=== PATIENT | female | born 1975 | race Caucasian/White ===

== ENCOUNTER 2022-08-07 22:08 | Emergency (ER) | payer SELFPAY ==
[~2022-08-07] VITALS: Ht 157.5 cm; Wt 72.9 kg
[2022-08-07 23:04] VITALS: O2SAT 98
[2022-08-08 04:36] LABS: BASOPHILS % 0.3 % (0.0-2.0); EOSINOPHILS % 0.8 % (0.0-5.0); HEMATOCRIT. 37.3 % (36.0-48.0); HEMOGLOBIN. 12.4 g/dL (12.0-16.0); LYMPHOCYTES % 18.6 % (20.0-50.0); MEAN CORPUSCULAR VOLUME 90.1 fL (81.0-99.0); MEAN PLATELET VOLUME 9.3 fl (7.4-10.4); MONOCYTES % 9.2 % (2.0-8.0); NEUTROPHILS % 71.1 % (40.0-76.0); PLATELET 266 x1000/uL (130-400); RED BLOOD CELL COUNT 4.14 mill/uL (4.2-5.4)
[2022-08-08 04:47] LABS: CLARITY URINE CLEAR (CLEAR); COLOR URINE YELLOW (YELLOW); KETONES URINE NEGATIVE (NEGATIVE); LEUKOCYTE ESTERASE URINE 1+ (NEGATIVE); NITRITE URINE NEGATIVE (NEGATIVE); OCCULT BLOOD URINE 1+ (NEGATIVE); PH URINE 6.5 (4.5-8.0); PROTEIN URINE NEGATIVE (NEGATIVE); SPECIFIC GRAVITY URINE 1.004 (1.005-1.030); UROBILINOGEN URINE 0.2 E.U./dL (0.2-1.0)
[2022-08-08 06:00] VITALS: BP 116/58; PULSE 76; RESP 15; TEMP 98.7
[2022-08-08] MEDS ORDERED: CEPH500C2 MT (06:06)
[2022-08-08] MEDS ORDERED: IBUP-2028 MT (06:06)
== END 2022-08-08 06:18 | disposition home or self-care (01) ==
LOC: ER 22:08
DX: M54.50 Low back pain, unspecified (principal); N12 Tubulo-interstitial nephritis, not specified as acute or chronic; D64.9 Anemia, unspecified
CPT/HCPCS: 36415; 72100; 81003; 85025; 99284

== ENCOUNTER 2025-02-03 12:08 | Emergency (ER) | payer MEDICAID ==
[~2025-02-03] VITALS: Ht 162.6 cm; Wt 73.0 kg
[~2025-02-03 12:08] MED LIST: CEPH500C2 MT; IBUP-2028 MT
[2025-02-03 12:14] VITALS: O2SAT 99
[2025-02-03 12:49] LABS: BASOPHILS % 0.7 % (0.0-2.0); EOSINOPHILS % 1.4 % (0.0-5.0); HEMATOCRIT. 42.0 % (36.0-48.0); HEMOGLOBIN. 14.3 g/dL (12.0-16.0); LYMPHOCYTES % 34.2 % (20.0-50.0); MEAN PLATELET VOLUME 8.9 fl (7.4-10.4); MONOCYTES % 8.5 % (2.0-8.0); NEUTROPHILS % 55.2 % (40.0-76.0); PLATELET 262 x1000/uL (130-400); RED BLOOD CELL COUNT 4.69 mill/uL (4.2-5.4); RED CELL DISTRIBUTION WIDTH 13.1 % (11.6-14.6)
[2025-02-03 13:08] LABS: CREATININE 0.6 mg/dL (0.6-1.0); UREA NITROGEN BLOOD 10 mg/dL (9-23)
[2025-02-03 14:05] VITALS: BP 115/61; PULSE 80; RESP 16; TEMP 36.9; O2SAT 99
== END 2025-02-03 14:18 | disposition home or self-care (01) ==
LOC: ER 12:08
DX: R00.2 Palpitations (principal); R53.83 Other fatigue; D64.9 Anemia, unspecified
CPT/HCPCS: 36415; 80048; 85025; 86850; 86900; 93005; 99284